=== PATIENT | male | born 1945 | race Caucasian/White ===

== ENCOUNTER 2019-06-06 19:38 | Emergency (ER) | payer OTHER, SELFPAY ==
--- NOTE | 2019-06-06 20:12 | ER ---
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 Transition of care: patient was not received from another setting of care. Mechanism of Injury: No Mechanism of Injury. The patient denies any loss of vision. Onset of symptoms was June 06, 2019. Risk Assessment: Do you want to hurt yourself or someone else? Patient reports no desire to harm self or others. Initial Sepsis Screen: Does the patient meet any 2 criteria? No. Patient's initial sepsis screen is negative. Does the patient have a suspected source of infection? No. Patient's initial sepsis screen is negative. Care prior to arrival: None. 20:07 Method Of Arrival: Ambulatory lp1 20:07 Acuity: JOY 4 lp1 Triage Assessment: 19:55 General: Appears in no apparent distress. comfortable, Behavior is calm, cooperative, cc3 appropriate for age. Historical: - Allergies: 20:10 No Known Allergies; lp1 - Home Meds: 20:10 atenolol 100 mg Oral tab 1 tab once daily [Active]; lp1 - PMHx: 20:10 Hypertension; lp1 - PSHx: 20:10 Eye surgery; Hernia repair; lp1 - Immunization history:: Adult Immunizations up to date. - Social history:: Smoking status: Patient/guardian denies using tobacco. - Family history:: not pertinent. - Ebola Screening: : No symptoms or risks identified at this time. Screenin:55 Fall Risk Ambulatory Aid- None/Bed Rest/Nurse Assist (0 pts). Gait- Normal/Bed cc3 Rest/Wheelchair (0 pts) Mental Status- Oriented to own ability (0 pts). 20:10 Abuse screen: Denies threats or abuse. Denies injuries from another. Nutritional lp1 screening: No deficits noted. Tuberculosis screening: No symptoms or risk factors identified. Assessment: 19:55 General: Appears in no apparent distress. comfortable, Behavior is calm, cooperative, cc3 appropriate for age. Pain: Complains of pain in right eye and right lower eyelid and right inner canthus and outer aspect of conjuctiva of right eye and right upper eyelid. Neuro: Level of Consciousness is awake, alert, obeys commands, Oriented to person, place, time, situation, Appropriate for age. Cardiovascular: Denies chest pain, Heart tones S1 S2 present Capillary refill < 3 seconds in bilateral fingers Patient's skin is warm and dry. Respiratory: Airway is patent Respiratory effort is even, unlabored, Respiratory pattern is regular, symmetrical, Breath sounds are clear bilaterally. GI: Abdomen is flat. : No signs and/or symptoms were reported regarding the genitourinary system. 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 Derm: Skin is intact, is fragile, Skin is pink, warm \T\ dry. normal. Musculoskeletal: Circulation, motion, and sensation intact. Range of motion: intact in all extremities. 20:27 Reassessment: Patient appears in no apparent distress at this time. Patient and/or cc3 family updated on plan of care and expected duration. Pain level reassessed. Patient is alert, oriented x 3, equal unlabored respirations, skin warm/dry/pink. Dr. Joya discharged the patient home with prescriptions given. NO IV cannula in situ. Patient left ER vitally stable and ambulatory with his . No valuables left in the patient's room. Patient states feeling better. Vital Signs: 20:09 BP 155 / 71; Pulse 54; Resp 18; Temp 97.5(TE); Pulse Ox 98% on R/A; Weight 75.3 kg; lp1 Height 5 ft. 10 in. (177.80 cm); Pain 5/10; 20:09 Body Mass Index 23.82 (75.30 kg, 177.80 cm) lp1 ED Course: 19:47 Patient arrived in ED. cl3 19:54 Greg Joya MD is Attending Physician. [facility] 19:55 Zohreh Reinoso is Primary Nurse. cc3 19:55 Patient has correct armband on for positive identification. Bed in low position. Call cc3 light in reach. Side rails up X 1. Pulse ox on. NIBP on. 20:09 Triage completed. lp1 20:10 Arm band placed on. lp1 20:11 Renetta Alvarez MD is Referral Physician. [facility] 20:16 Wound culture swab sent to lab. mg2 20:27 No provider procedures requiring assistance completed. Patient did not have IV access cc3 during this emergency room visit. Administered Medications: 20:15 Drug: Bactrim (160 mg-800 mg (DS) 1 tablet Route: PO; cc3 20:27 Follow up: Response: No adverse reaction cc3 20:15 Drug: Doxycycline 200 mg Route: PO; cc3 20:27 Follow up: Response: No adverse reaction cc3 20:17 Drug: Bactroban Ointment 2 % 1 application {Note: right eye.} Route: Topical; Site: cc3 affected area; 20:27 Follow up: Response: No adverse reaction cc3 Outcome: 20:12 Discharge ordered by . [place] 20:27 Patient left the ED. cc3 20:27 Discharged to home ambulatory, with family. cc3 20:27 Condition: stable 20:27 Discharge instructions given to patient, family, Instructed on discharge instructions, follow up and referral plans. medication usage, Demonstrated understanding of instructions, follow-up care, medications, Prescriptions given X 3. Signatures: Greg Joya MD MD cha Pena, Laura, RN RN lp1 Elvin Ford, TERESSA RN mg2 Zohreh Reinoso cc3 Angelica Rodriguez 3
--- NOTE | 2019-06-06 20:12 | EDPHYS ---
Physician Documentation [facility] Name: [place] Luanne Age: 74 yrs Sex: Male : 1945 Arrival Date: 06/06/2019 Time: 19:47 Bed 13 Private MD: BRIAN Physician Greg Joya HPI: 06/06 20:07 This 74 yrs old Male presents to ER via Unassigned with complaints of Eye [place] Pain. 20:07 The patient is experiencing pain, redness, tearing, The patient sustained old, loss of [place] eye. Onset: The symptoms/episode began/occurred 3 day(s) ago. Duration: the symptoms are continuous. Aggravated by closing eye, pressure, rubbing. Associated signs and symptoms: Pertinent positives: None. Severity of symptoms: At their worst the symptoms were mild. Historical: - Allergies: 20:10 No Known Allergies; lp1 - Home Meds: 20:10 atenolol 100 mg Oral tab 1 tab once daily [Active]; lp1 - PMHx: 20:10 Hypertension; lp1 - PSHx: 20:10 Eye surgery; Hernia repair; lp1 - Immunization history:: Adult Immunizations up to date. - Social history:: Smoking status: Patient/guardian denies using tobacco. - Family history:: not pertinent. - Ebola Screening: : No symptoms or risks identified at this time. ROS: 20:07 Constitutional: Negative for fever, chills, and weight loss, Eyes: Negative for injury, [place] pain, redness, and discharge, Neck: Negative for injury, pain, and swelling, Cardiovascular: Negative for chest pain, palpitations, and edema, Respiratory: Negative for shortness of breath, cough, wheezing, and pleuritic chest pain, Abdomen/GI: Negative for abdominal pain, nausea, vomiting, diarrhea, and constipation, Back: Negative for injury and pain, : Negative for injury, bleeding, discharge, and swelling, MS/Extremity: Negative for injury and deformity, Skin: Negative for injury, rash, and discoloration, Neuro: Negative for headache, weakness, numbness, tingling, and seizure, Psych: Negative for depression, anxiety, suicide ideation, homicidal ideation, and hallucinations, Allergy/Immunology: Negative for hives, rash, and allergies, Endocrine: Negative for neck swelling, polydipsia, polyuria, polyphagia, and marked weight changes, Hematologic/Lymphatic: Negative for swollen nodes, abnormal bleeding, and unusual bruising. 20:07 Eyes: Positive for pain, redness, swelling, of the right upper eyelid, outer aspect of conjuctiva of right eye, right inner canthus and right lower eyelid. 20:07 ENT: Positive for Exam: 20:07 Constitutional: This is a well developed, well nourished patient who is awake, alert, [place] and in no acute distress. ENT: Nares patent. No nasal discharge, no septal abnormalities noted. Tympanic membranes are normal and external auditory canals are clear. Oropharynx with no redness, swelling, or masses, exudates, or evidence of obstruction, uvula midline. Mucous membranes moist. Neck: Trachea midline, no thyromegaly or masses palpated, and no cervical lymphadenopathy. Supple, full range of motion without nuchal rigidity, or vertebral point tenderness. No Meningismus. Chest/axilla: Normal chest wall appearance and motion. Nontender with no deformity. No lesions are appreciated. Cardiovascular: Regular rate and rhythm with a normal S1 and S2. No gallops, murmurs, or rubs. Normal PMI, no JVD. No pulse deficits. Respiratory: Lungs have equal breath sounds bilaterally, clear to auscultation and percussion. No rales, rhonchi or wheezes noted. No increased work of breathing, no retractions or nasal flaring. Abdomen/GI: Soft, non-tender, with normal bowel sounds. No distension or tympany. No guarding or rebound. No evidence of tenderness throughout. Back: No spinal tenderness. No costovertebral tenderness. Full range of motion. Skin: Warm, dry with normal turgor. Normal color with no rashes, no lesions, and no evidence of cellulitis. MS/ Extremity: Pulses equal, no cyanosis. Neurovascular intact. Full, normal range of motion. Neuro: Awake and alert, GCS 15, oriented to person, place, time, and situation. Cranial nerves II-XII grossly intact. Motor strength 5/5 in all extremities. Sensory grossly intact. Cerebellar exam normal. Normal gait. Psych: Awake, alert, with orientation to person, place and time. Behavior, mood, and affect are within normal limits. 20:07 Head/face: Noted is swelling, tenderness, that is moderate, of the right eye. Vital Signs: 20:09 BP 155 / 71; Pulse 54; Resp 18; Temp 97.5(TE); Pulse Ox 98% on R/A; Weight 75.3 kg; lp1 Height 5 ft. 10 in. (177.80 cm); Pain 5/10; 20:09 Body Mass Index 23.82 (75.30 kg, 177.80 cm) lp1 MDM: 19:54 Patient medically screened. [facility] 20:10 Data reviewed: vital signs, nurses notes. [facility] 06/06 20:07 Order name: Wound Culture [facility] 06/06 20: Order name: Wound Care; Complete Time: 20:24 [facility] Administered Medications: 20:15 Drug: Bactrim (160 mg-800 mg (DS) 1 tablet Route: PO; cc3 20:27 Follow up: Response: No adverse reaction cc3 20:15 Drug: Doxycycline 200 mg Route: PO; cc3 20:27 Follow up: Response: No adverse reaction cc3 20:17 Drug: Bactroban Ointment 2 % 1 application {Note: right eye.} Route: Topical; Site: cc3 affected area; 20:27 Follow up: Response: No adverse reaction cc3 Disposition: 06/06/19 20:12 Discharged to Home. Impression: Cellulitis of face - periorbital. - Condition is Stable. - Discharge Instructions: Cellulitis, Adult, Cellulitis, Adult, [id number], Preseptal Cellulitis, Adult, MRSA FAQs - JOHNS. - Prescriptions for Bactroban 2 % Topical Ointment - Apply to affected area 1 application by TOPICAL route every 12 hours; 30 gram. Doxycycline Hyclate 100 mg Oral Tablet - take 1 tablet by ORAL route every 12 hours; 20 tablet. Bactrim DS 800- 160 mg Oral Tablet - take 1 tablet by ORAL route every 12 hours for 10 days; 20 tablet. - Medication Reconciliation Form, Thank You Letter, Antibiotic Education, Prescription Opioid Use form. - Follow up: Private Physician; When: 2 - 3 days; Reason: Recheck today's complaints, Continuance of care, Re-evaluation by your physician. Follow up: Renetta Alvarez MD; When: 2 - 3 days; Reason: Recheck today's complaints, Continuance of care, Re-evaluation by your physician. - Problem is new. - Symptoms have improved. Signatures: Dispatcher [employer] EDGreg Anderson MD MD cha Pena, Laura, RN RN lp1 Zohreh Reinoso cc3 Corrections: (The following items were deleted from the chart) 20:27 20:12 06/06/2019 20:12 Discharged to Home. Impression: Cellulitis of face - cc3 periorbital. Condition is Stable. Forms are Medication Reconciliation Form, Thank You Letter, Antibiotic Education, Prescription Opioid Use. Follow up: Private Physician; When: 2 - 3 days; Reason: Recheck today's complaints, Continuance of care, Re-evaluation by your physician. Follow up: Renetta Alvarez; When: 2 - 3 days; Reason: Recheck today's complaints, Continuance of care, Re-evaluation by your physician. Problem is new. Symptoms have improved. [place]
[2019-06-06] MEDS ORDERED: DOXYCYCLINE 100 MG CAP PO ONE (20:13)
[2019-06-06] MEDS ORDERED: MUPIROCIN 2% OINT 22GM TUBE TOP ONE (20:13)
[2019-06-06] MEDS ORDERED: SMZ./TMP. 800/160 MG TABLET ONE (20:13)
[2019-06-06 20:32] VITALS: BP 155/71; TEMP 97.5; O2SAT 98
== END 2019-06-06 20:27 | disposition home or self-care (01) ==
LOC: ER 19:38
DX: L03.213 Periorbital cellulitis (principal); I10 Essential (primary) hypertension
CPT/HCPCS: 87070; 87077; 87186; 87205; 99284